=== PATIENT | male | born 1985 | race Two or more races ===

== ENCOUNTER 2024-08-24 14:08 | Emergency (ER) | payer MEDICAID ==
[~2024-08-24] VITALS: Ht 165.1 cm; Wt 85.6 kg
--- NOTE | 2024-08-24 14:39 | ED.PDOC ---
HPI (NEURO) HPI Comments HPI: Poor Historian. 39-year-old male presents to emergency department for evaluation of headache status post mechanical slip and fall from standing position on-this past . Patient has been having associated nausea and vomiting and headache. Patient has been experiencing difficulty sleeping at night. Patient also complains diaphoresis/fever. Past Medcial History: Denies any Past Surgical History: Denies any REVIEW OF SYSTEMS: CONSTITUTIONAL: Denies acute: chills, HEAD: Denies acute: photophobia Eyes: Denies acute: Double vision, vision loss, eye pain, eye discharge. EARS: Denies acute: tinnitus, hearing loss, ear discharge, ear pain, THROAT: Denies acute: sore throat, swelling, difficulty swallowing , pain with swallowing, change in voice. NECK: Denies acute: neck swelling, stiff neck. HEART: Denies acute : chest pain, palpitations, LUNGS: Denies acute: SOB, wheezing, cough, hemoptysis ABDOMEN: Denies acute: abdominal pain, diarrhea, melena , hematemesis, hematochezia SKIN: Denies acute: rash, redness, lesions, itchiness. EXTREMITIES: Denies acute: calf pain, numbness, tingling, weakness, denies pain in extremity. Denies acute: Low back pain. Neuro: Denies acute: focal neurological deficit, motor or sensory focal neurological deficit, tremors, seizure like activity, confusion, change in mental status, loss of bowel or bladder function, cauda equina like symptoms. : Denies acute: dysuria, hematuria, flank pain, increase in urinary frequency. PSYCH: Denies acute: hallucination, suicidal ideation, homicidal ideation. FEMALE: Denies acute: abnormal vaginal bleeding, foul odor, unusual discharge. PHYSICAL EXAM: General: no acute distress, awake and alert. Head: normocephalic, atraumatic. Neck: supple, trachea is midline, no swelling. Throat: Normal phonation., no obstruction, no erythema, no exudates, no swelling Eyes:, no erythema, no purulent discharge, no proptosis, no icterus. Heart: regular rate, regular rhythm, no significant murmur appreciated. Lungs: no apparent respiratory distress, Able to speak in full sentences. No wheezing, no rhonchi, no crackles. No stridors Clear to auscultation bilaterally. Abdomen: non tender to palpation, non distended, soft, no guarding, no rebound, + bowel sounds. Neuro: Awake, Alert, oriented to name, self, situation, follows commands GCS=15. Speech is normal. Skin: no petechia, no purpura, no cyanosis, non-pale, not jaundice. Lower extremities: --no - Pitting edema no deformity, no focal swelling, no calf TTP. Makes eye contact. moves all four extremities. Face: no apparent facial droop. Ambulating in the ED independently. Ears: Normal appearing TM b/l, Stroke: finger to nose cerebellar testing is intact. No pronator drift. 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 No nuchal rigidity, Kernig's sign, Brudzinski's sign, no meningeal signs. Chief Complaint: Fall Injury Time Seen by MD: 14:28 Reviewed Notes: Nurses Notes, Allergies Information Source: Patient X-Ray, Labs, Meds, VS Vital Signs Date Time Temp Pulse Resp B/P (MAP) Pulse Ox O2 Delivery O2 Flow Rate FiO2 08/24/24 15:27 123/71 08/24/24 14:33 97.0 54 16 141/86 (104) 99 Lab Test 08/24/24 15:23 08/24/24 14:35 Range/Units Lactic Acid Level Pending White Blood Count 6.3 4.4-10.8 10^3/uL Red Blood Count 5.51 4.5-5.90 10^6/uL Hemoglobin 16.0 13.5-17.5 g/dL Hematocrit 47.0 41.0-53.0 % Mean Corpuscular Volume 85.4 80.0-100.0 fL Mean Corpuscular Hemoglobin 29.1 28.0-32.0 pg Mean Corpuscular Hemoglobin Concent 34.1 32.0-36.0 g/dL Red Cell Distribution Width 12.8 11.8-14.3 % Platelet Count 230 140-450 10^3/uL Mean Platelet Volume 8.1 6.9-10.8 fL Neutrophils (%) (Auto) 79.9 37.0-80.0 % Lymphocytes (%) (Auto) 15.0 10.0-50.0 % Monocytes (%) (Auto) 4.8 0.0-12.0 % Eosinophils (%) (Auto) 0.0 0.0-7.0 % Basophils (%) (Auto) 0.3 0.0-2.0 % Neutrophils # (Auto) 5.1 1.6-8.6 10 ^3/uL Lymphocytes # (Auto) 0.9 0.4-5.4 10 ^3/uL Monocytes # (Auto) 0.3 0-1.3 10 ^3/uL Eosinophils # (Auto) 0 0-0.8 10 ^3/uL Basophils # (Auto) 0 0-0.2 10 ^3/uL Nucleated Red Blood Cells 0.0 % Sodium Level Pending Potassium Level Pending Chloride Level Pending Carbon Dioxide Level Pending Anion Gap Pending Blood Urea Nitrogen Pending Creatinine Pending Glomerular Filtration Rate Calc Pending BUN/Creatinine Ratio Pending Serum Glucose Pending Calcium Level Pending Total Bilirubin Pending Aspartate Amino Transferase (AST) Pending Alanine Aminotransferase (ALT) Pending Alkaline Phosphatase Pending Total Protein Pending Albumin Pending Monoscreen Pending Current Medications Medications (Trade) Dose Ordered Sig/Dirk Route Start Time Stop Time Status Last Admin Dexamethasone Sodium Phosphate (Decadron Injection) 20 mg ONCE ONCE IV 08/24/24 15:15 08/24/24 15:16 DC 08/24/24 15:28 Ondansetron HCl (Zofran) 8 mg ONCE ONCE IV 08/24/24 15:15 08/24/24 15:16 DC 08/24/24 15:28 Levetiracetam 100 ml @ 400 mls/hr ONCE ONCE IV 08/24/24 15:15 08/24/24 15:29 DC 08/24/24 15:29 Fentanyl Citrate 100 mcg ONCE ONCE IV 08/24/24 15:30 08/24/24 15:31 08/24/24 15:27 Time of 1ST Reevaluation: 15:18 (The case was discussed with the [facility] admitting team (HPI, physical exam, labs and diagnostic tests that were available at the time of disposition, ED course, treatment plan) on the phone. They agreed to accept the patient to their facility for further evaluation and treatment and neurosurgical evaluation and higher level of care. Dr. Gupta. ) Reevaluation 1ST: Unchanged Patient Education/Counseling: Diagnosis, Treatment Family Education/Counseling: No Family Present Departure 1 Departure Time of Disposition: 15:07 Impression: Primary Impression: Focal hemorrhagic contusion of cerebrum Additional Impressions: Frontal skull fracture Postconcussion syndrome Traumatic injury of head Frontal sinus fracture Disposition: 02 SHORT TERM HOSPITAL Admit to: [facility] Condition: Critical Discharged With: Self TONG OKEEFE DO Aug 24, 2024 14:39
--- NOTE | 2024-08-24 15:01 | DVH ---
EXAM: CT HEAD WITHOUT CONTRAST INDICATION: FALL INJURY TECHNIQUE: CT of the head without intravenous contrast. Coronal and sagittal reformatted images are submitted. Radiation Dose : 1. Head: CT Dose: CTDI volume is 62.91 mGy. Dose-length product is 863.90 mGy*cm The dose indicators for CT are the volume Computed Tomography (CT) Dose Index (CTDIvol) and the Dose Length Product (DLP), and are measured in units of mGy and mGy-cm, respectively. These indicators are not patient dose, but values generated from the CT scanner acquisition factors. The report includes radiation exposure data for exposures received during this examination. All CT scans at this medical facility are performed using dose modulation techniques as appropriate to a performed exam including the following: Automated exposure control was utilized; adjustment of the MA and/or KV according to patient size; and use of iterative reconstruction technique. COMPARISON: None FINDINGS: Bilateral frontal lobe hemorrhagic contusions surrounded by edema. No midline shift or mass effect. The ventricles, sulci and cisterns are age appropriate. The dowd-white differentiation is intact. The visualized paranasal sinuses and mastoid air cells are clear. Acute nondisplaced fracture through the frontal bone and left frontal sinus. The surrounding soft tis sues are unremarkable. IMPRESSION: 1. Hemorrhagic contusions in the bilateral frontal lobes. 2. Acute nondisplaced fracture through the frontal bone and left frontal sinus.
--- NOTE | 2024-08-24 15:04 | DVH ---
EXAM: CT CERVICAL WITHOUT CONTRAST INDICATION: FALL INJURY EXAM DATE: 08/24/2024 02:35 PM COMPARISON: None TECHNIQUE: Multiple axial CT images of the cervical spine were obtained using bone algorithm. Sagitta l and coronal reformatting was done. Bone and soft tissue windows were reviewed. Radiation Dose Information: CT Dose: CTDI volume is 20.2 mGy. Dose-length product is 501.6 mGy*cm FINDINGS: The cervical alignment is intact. Curvature is maintained. No acute cervical spine fracture is identi fied. The vertebral body heights are intact. No suspicious osseous lesions are identified. No significant degenerative changes are identified. There is no prevertebral soft tissue swelling. Lung apices are clear. IMPRESSION: 1. No evidence of acute cervical spine fracture or traumatic malalignment. All CT scans at this medical facility are performed using dose modulation techniques as appropriate t o a performed exam including the following: Automated exposure control was utilized; adjustment of th e MA and/or KV according to patient size; and use of iterative reconstruction technique.
[2024-08-24 15:16] LABS: Basophils # (auto) 0 10 ^3/uL (0-0.2); Basophils % (auto) 0.3 % (0.0-2.0); Eosinophils # (auto) 0 10 ^3/uL (0-0.8); Lymphocytes # (auto) 0.9 10 ^3/uL (0.4-5.4); Mean Corpuscular Hemoglobin 29.1 pg (28.0-32.0); Mean Corpuscular Hgb Conc. 34.1 g/dL (32.0-36.0); Mean Corpuscular Volume 85.4 fL (80.0-100.0); Monocytes # (auto) 0.3 10 ^3/uL (0-1.3); Monocytes % (auto) 4.8 % (0.0-12.0); Neutrophils # (auto) 5.1 10 ^3/uL (1.6-8.6); Neutrophils % (auto) 79.9 % (37.0-80.0); Platelet Count (auto) 230 10^3/uL (140-450); Red Blood Cells 5.51 10^6/uL (4.5-5.90); Red Cell Distribution Width 12.8 % (11.8-14.3); White Blood Cell 6.3 10^3/uL (4.4-10.8)
[2024-08-24] MEDS: fentaNYL CITRATE 100 MCG/2 ML VL IV ONE (15:27)
[2024-08-24] MEDS: ONDANSETRON HCL 4 MG/2 ML VIAL IV ONE (15:28)
[2024-08-24] MEDS: DexAMETHasone SOD PHOS 10MG/1ML VIAL INJ IV ONE (15:28)
[2024-08-24] MEDS: levETIRAcetam 500 mg/100ml 100 ML IV ONE (15:29)
[2024-08-24 15:30] LABS: Alkaline Phosphatase 89 U/L (46-116); Anion Gap 9 (5-15); Aspartate Aminotransferase 37 U/L (13-40); BUN/Creatinine Ratio 13.9 (10.0-20.0); Bilirubin, Total 0.8 mg/dL (0.2-1.0); Blood Urea Nitrogen 16 mg/dL (9-23); Carbon Dioxide 28 mmol/L (20-31); Chloride 102 mmol/L (98-107); Potassium 3.9 mmol/L (3.5-5.1); Sodium 139 mmol/L (136-145); Total Protein 8.1 g/dL (5.7-8.2)
[2024-08-24] MEDS ORDERED: ceFAZolin 1GM/50ML 50 ML IV ONE (15:30)
[2024-08-24 15:34] LABS: Alanine Aminotransferase 63 U/L (7-40); Calcium 10.4 mg/dL (8.7-10.4); Glucose 137 mg/dL (74-106)
[2024-08-24 15:52] VITALS: PULSE 45; RESP 14; O2SAT 100
--- NOTE | 2024-08-24 16:28 | DVH ---
CHEST RADIOGRAPH Indication: fall Technique: Single frontal view of the chest was obtained COMPARISON: None FINDINGS: Lines and Tubes: None Lungs: Clear Pleura: No effusion. No pneumothorax. Cardiomediastinal contours: Unremarkable Bones: Unremarkable IMPRESSION: No acute disease.
[2024-08-24 16:48] VITALS: BP 133/77; PULSE 45; RESP 18; TEMP 98; O2SAT 98
[2024-08-24] MEDS: ALBUTEROL SULF 2.5 MG/0.5ML(0.5%) NEB SOLN NEB ONE (17:03)
[2024-08-24] MEDS: IPRATROPIUM BROM 0.5 MG/2.5ML INH SOL NEB ONE (17:03)
[2024-08-24 17:25] LABS: COVID19 ANTIGEN SOFIA FIA NEGATIVE (NEGATIVE); Rapid Influenza A Negative (Negative); Rapid Influenza B Negative (Negative)
--- NOTE | 2024-08-24 18:55 | ECG ---
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
== END 2024-08-24 17:06 | disposition short-term general hospital (02) ==
LOC: ER 14:08
DX: S02.0XXA Fracture of vault of skull, initial encounter for closed fracture (principal); S02.19XA Other fracture of base of skull, initial encounter for closed fracture; S06.370A Contusion, laceration, and hemorrhage of cerebellum without loss of consciousness, initial encounter; F07.81 Postconcussional syndrome; Z20.822 Contact with and (suspected) exposure to COVID-19; W01.0XXA Fall on same level from slipping, tripping and stumbling without subsequent striking against object, initial encounter; Y93.89 Activity, other specified; Y92.89 Other specified places as the place of occurrence of the external cause; Y99.8 Other external cause status
CPT/HCPCS: 36415; 70450; 71045; 72125; 80053; 83605; 84484; 85025; 86308; 87426; 87804; 93005; 96365; 96366; 96368; 96375; 99285; J1100; J1953; J2405; J3010